=== PATIENT | male | born 1980 | race Caucasian/White ===

== ENCOUNTER 2020-09-05 19:02 | Emergency (ER) | payer OTHER, SELFPAY ==
[2020-09-05 19:11] VITALS: BP 123/68; PULSE 73; RESP 22; TEMP 36.6; O2SAT 100
[2020-09-05] MEDS: PROPARACAINE 0.5% OPHTH SOL 1 DROPS EYE-RIGHT (19:40)
--- NOTE | 2020-09-05 22:17 | ED_ITS ---
HPI - General Adult General Chief complaint: Eye Problems Stated complaint: rt eye irritation, possible FB Time Seen by Provider: 09/05/20 22:15 Source: patient Mode of arrival: Ambulatory Limitations: no limitations History of Present Illness HPI narrative: Patient is a 40-year-old male here for evaluation of right eye irritation. He states that approximately 1 hour ago he thought that something came up and hit him in the eye. He did irrigate his eye afterwards but he still continues to have irritation. He looked at it home I could not find anything in his eye. He is not having any vision changes. Does not were contacts. Does not wear corrective lenses. No prior history of eye surgeries. Related Data Allergies Allergy/AdvReac Type Severity Reaction Status Date / Time No Known Drug Allergies Allergy Verified 09/05/20 22:32 Review of Systems Constitutional Constitutional: Denies headache(s) Eyes Comments: Irritation, foreign body sensation right eye ENT Ears, Nose, Mouth, and Throat: Denies headache(s) and Denies sore throat Integumentary/Breasts Skin/Breast: Denies rash Neurologic Neurologic: Denies behavioral changes and Denies headache(s) Psychiatric Psychiatric: Denies behavioral changes Hematologic/Lymphatic On Anticoagulants: No Allergic/Immunologic Allergic/Immunologic: Denies urticaria Patient History Medical History Healthy adult Social History lives independently: Yes Exam Initial Vital Signs Initial Vital Signs: Vital Signs Temperature 97.9 F 09/05/20 19:11 Pulse Rate 73 09/05/20 19:11 Respiratory Rate 22 09/05/20 19:11 Blood Pressure 123/68 09/05/20 19:11 Pulse Oximetry 100 09/05/20 19:11 Const General: cooperative, healthy appearing, comfortable and well developed [facility] Head: normal to inspection and normocephalic Eyes General: appearance normal, both eyes and all related structures Visual Mobley: normal visual mobley by confrontation Periorbital: periorbital findings normal Eyelids: eyelids normal Conjunctivae: conjunctivae normal Sclera: sclerae normal Cornea: corneas normal and fluorescein used; normal corneas Pupils: PERRL, not dilated and regular EOM: EOM intact bilaterally Skin Lesions: no lesions Rashes: no rashes Neuro General: patient alert and patient awake Extrem General: capillary refill normal Psych Appearance: grossly normal and well kempt Course Orders Ordered: Discontinued Medications Erythromycin (Erythromycin Ophth 1 Gm Oint) 1 applic EYE-RIGHT NOW ONE Stop: 09/05/20 22:29 Last Admin: 09/05/20 22:33 Dose: 1 applic Documented by: SKY Fluorescein Sodium (Fluorescein 1 Mg Strip) 1 mg EYE-BOTH NOW ONE Stop: 09/05/20 22:18 Last Admin: 09/05/20 22:21 Dose: 1 mg Documented by: JOSEFINA Proparacaine HCl (Proparacaine 0.5% Ophth [place]) 1 drops EYE-RIGHT NOW ONE Stop: 09/05/20 19:11 Last Admin: 09/05/20 19:40 Dose: 1 drops Documented by: JAIRO Vital Signs Vital signs: Vital Signs - 8 hr 09/05/20 19:11 Temperature 97.9 F Pulse Rate 73 Respiratory Rate 22 Blood Pressure 123/68 Pulse Oximetry 100 Medical Decision Making [facility] Narrative Medical decision making narrative: There is no foreign body noted on the exam. This did include eversion of both the upper and lower eyelids. There is no abrasion seen with staining. Low suspicion for glaucoma. Low suspicion for cellulitis. He was given erythromycin ointment just to soothe his eye because. I suspect that the irritation is because he is tried to flush his eye several times since the initial event happened. He could potentially had a foreign body that was removed with his treatment at home. We will hold on further workup for now. Patient was given return precautions and follow-up instructions. He expressed understanding and agreement. Discharge Plan Departure Patient Disposition: Home Clinical Impression: Irritation of right eye Instructions: DI for Eye Pain Activity Restrictions/Additional Instructions: Use the antibiotic ointment like we discussed over the next 24 hours. Return to the emergency department for any new or worsening symptoms
[2020-09-05] MEDS: FLUORESCEIN 1 MG STRIP EYE-BOTH (22:21)
[2020-09-05] MEDS: ERYTHROMYCIN OPHTH 1 GM OINT 1 APPLIC EYE-RIGHT (22:33)
== END 2020-09-05 22:34 | disposition home or self-care (01) ==
PROVIDERS: Emergency Provider Emergency Medicine
DX: H57.89 Other specified disorders of eye and adnexa (principal)
CPT/HCPCS: 99282